=== PATIENT | female | born 1970 | race Caucasian/White ===

== ENCOUNTER → 2016-12-05 | Outpatient (CLI) | payer BC ==
[2004-09-07 06:20] VITALS: TEMP 97.2
== END ==
LOC: MC.RAD 14:37
DX: Z12.31 Encounter for screening mammogram for malignant neoplasm of breast (principal); N64.89 Other specified disorders of breast

== ENCOUNTER → 2016-12-06 | Outpatient (CLI) | payer BC ==
[2004-09-07 06:20] VITALS: TEMP 97.2
== END ==
LOC: MC.RAD 08:21
DX: N64.89 Other specified disorders of breast (principal)

== ENCOUNTER → 2018-02-06 | Outpatient (CLI) | payer BC ==
[2004-09-07 06:20] VITALS: TEMP 97.2
== END ==
LOC: MC.RAD 13:32
DX: Z12.31 Encounter for screening mammogram for malignant neoplasm of breast (principal)

== ENCOUNTER → 2019-02-20 | Outpatient (CLI) | payer BC ==
[2004-09-07 06:20] VITALS: TEMP 97.2
== END ==
LOC: MC.RAD 15:59
DX: Z12.31 Encounter for screening mammogram for malignant neoplasm of breast (principal)

== ENCOUNTER → 2020-03-16 | Outpatient (CLI) | payer BC ==
[2004-09-07 06:20] VITALS: TEMP 97.2
== END ==
LOC: MC.RAD 14:00
DX: Z12.31 Encounter for screening mammogram for malignant neoplasm of breast (principal)

== ENCOUNTER 2020-05-28 08:28 | Day surgery (SDC) | payer BC ==
[~2020-05-28] VITALS: Ht 170.2 cm; Wt 67.2 kg
[2020-05-28] MEDS ORDERED: LEVOXYL0.025 MG PO (09:19)
[2020-05-28 10:30] VITALS: BP 101/69; PULSE 84
[2020-05-28 10:45] VITALS: BP 115/77; PULSE 72
[2020-05-28 11:00] VITALS: BP 110/72; PULSE 71
[2020-05-28 11:12] VITALS: BP 129/77; PULSE 72; TEMP 98.9
== END 2020-05-28 12:00 | disposition home or self-care (01) ==
LOC: SDCO 08:28
DX: Z12.11 Encounter for screening for malignant neoplasm of colon (principal); Z90.710 Acquired absence of both cervix and uterus; Z88.5 Allergy status to narcotic agent; Z20.822 Contact with and (suspected) exposure to COVID-19
CPT/HCPCS: J2704

== ENCOUNTER → 2021-06-10 | Outpatient (CLI) | payer BC ==
[~2021-06-10] MED LIST: LEVOXYL0.025 MG PO
== END ==
LOC: MC.RAD 07:58
DX: Z12.31 Encounter for screening mammogram for malignant neoplasm of breast (principal)

== ENCOUNTER → 2023-08-03 | Outpatient (CLI) | payer BC ==
[2004-09-07 06:20] VITALS: BP 135/84; PULSE 104; TEMP 97.2
== END ==
LOC: MC.RAD 07:45
DX: Z12.31 Encounter for screening mammogram for malignant neoplasm of breast (principal)